=== PATIENT | female | born 1945 | race Caucasian/White ===

== ENCOUNTER 2021-05-26 01:57 | Inpatient (IN) | payer MEDICARE, BC ==
[2021-05-26] MEDS ORDERED: Guaifenesin DM 100-10/5 ML UDCUP PO PRN (02:25)
[2021-05-26] MEDS ORDERED: Zolpidem Tartrate 5 MG TAB PO PRN (02:25)
[2021-05-26] MEDS ORDERED: Ondansetron PF 4 MG/2 ML Vial IVP PRN (02:25)
[2021-05-26] MEDS ORDERED: Acetaminophen 325 MG TAB PO PRN (02:25)
[2021-05-26] MEDS ORDERED: Calcium Carbonate 500 MG ChewTAB PO PRN (02:25)
[2021-05-26] MEDS ORDERED: Dextrose 50% Abboject 50 ML SYRINGE SLOW IVP PRN (02:25)
[2021-05-26] MEDS ORDERED: Dextrose 5% in Water 1,000 ML IV PRN (02:25)
[2021-05-26] MEDS ORDERED: Senokot S 8.6-50 MG TAB PO PRN (02:25)
[2021-05-26 02:39] VITALS: BMI 22.1
[2021-05-26] MEDS ORDERED: Furosemide 20 MG/2 ML VIAL SLOW IVP SCH (02:45)
[2021-05-26] MEDS ORDERED: Magnesium 2 GM/50 ML 2 GM in Premix Bag 1 BAG IVPB SCH (03:00)
[2021-05-26] MEDS: HumaLOG 300 UNITS/3 ML VIAL SC PRN ×3 (03:50→17:19)
[2021-05-26 04:41] LABS: Legionella Urinary Ag Negative (Negative); Strep pneumo Urine Ag NEGATIVE (NEGATIVE)
[2021-05-26] MEDS: methylPREDNISolone Sod Succ 40 MG VIAL IVP SCH ×4 (05:24→22:57)
[2021-05-26] MEDS: Levothyroxine Sodium 125 MCG TAB PO SCH (05:25)
[2021-05-26 05:26] LABS: Anion Gap 20 mmol/L (10-20); BUN (Urea Nitrogen) 37 mg/dL (9.8-20.1); Calc. Creatinine Clearance 35 mL/min (70-130); Carbon Dioxide 21 mmol/L (23-31); Chloride 103 mmol/L (98-107); Potassium 4.3 mmol/L (3.5-5.1); Sodium 140 mmol/L (136-145)
[2021-05-26 05:27] LABS: Calcium 9.1 mg/dL (7.8-10.44); Glucose 235 mg/dL (83-110)
[2021-05-26 06:23] LABS: #Monocytes 0.1 10x3/uL (0.0-1.1); #Neutrophils 6.1 10x3/uL (1.5-8.4); %Basophils 0.2 % (0.0-2.0); %Lymphocytes 5.3 % (18.0-47.0); %Monocytes 1.8 % (0.0-10.0); %Neutrophils 91.3 % (40.0-75.0); Hemoglobin 9.6 g/dL (12.0-15.5); Mean Corpuscular HGB CONC 32.9 g/dL (32.0-36.0); Mean Corpuscular Hemoglobin 33.1 pg (27.0-33.0); Mean Corpuscular Volume 100.7 fl (81.6-98.3); Mean Platelet Volume 8.7 fl (7.4-10.4); Platelet Count 77 10x3/uL (150-450); RBC Distribution Width 18.7 % (11.5-14.5); White Blood Cell (WBC) Count 6.6 10x3/uL (3.5-10.5)
[2021-05-26 06:24] LABS: Platelet Morphology Comment Appears Decreased; RBC Morphology Normal
[2021-05-26] MEDS: Mometasone 200 MCG/Formoterol 5 MCG 120 PUFF INHALER INH SCH ×2 (07:14→20:32)
[2021-05-26] MEDS ORDERED: metFORMIN XR 500 MG TAB PO SCH (08:00)
[2021-05-26] MEDS ORDERED: metFORMIN 500 MG TAB PO SCH ×2 (08:00→17:00)
[2021-05-26] MEDS ORDERED: Clopidogrel Bisulfate 75 MG TAB PO SCH (09:00)
[2021-05-26] MEDS ORDERED: Lisinopril 20 MG TAB PO SCH (09:00)
[2021-05-26] MEDS ORDERED: Enoxaparin Sodium 40 MG/0.4 ML SYRINGE SC SCH (09:00)
[2021-05-26] MEDS ORDERED: BIOTIN 5 MG PO SCH (09:00)
[2021-05-26] MEDS ORDERED: Metoprolol Tartrate 25 MG TAB PO SCH (09:00)
[2021-05-26] MEDS ORDERED: Famotidine 20 MG TAB PO SCH (09:00)
[2021-05-26] MEDS ORDERED: Furosemide 20 MG TAB PO SCH ×4 (09:00)
[2021-05-26] MEDS: Magnesium Oxide 400 MG TAB PO SCH (10:00)
[2021-05-26] MEDS: Digoxin 0.125 MG TAB PO SCH (10:01)
[2021-05-26] MEDS: carBAMazepine 200 MG TAB PO SCH ×2 (10:01→17:18)
[2021-05-26] MEDS: Aspirin Chewable 81 MG TAB PO SCH (10:01)
[2021-05-26] MEDS: Metoprolol Tartrate 25 MG TAB PO SCH ×2 (10:02→23:02)
[2021-05-26] MEDS: Empagliflozin 25 MG TAB PO SCH (10:02)
[2021-05-26] MEDS: Amiodarone 200 MG TAB PO SCH (10:02)
[2021-05-26] MEDS: levETIRAcetam 500 MG TAB PO SCH ×2 (10:02→22:58)
[2021-05-26] MEDS: Amoxicillin/Potassium Clav 875 MG TAB PO SCH ×2 (10:03→23:02)
[2021-05-26] MEDS ORDERED: Sodium Chloride 0.9% 500 ML IV SCH (19:00)
[2021-05-26] MEDS: Montelukast Sodium 10 mg Tablet PO SCH (22:57)
[2021-05-26] MEDS: Rosuvastatin 20 MG TAB PO SCH (23:02)
[2021-05-27] MEDS: HumaLOG 300 UNITS/3 ML VIAL SC PRN ×5 (03:34→21:07)
[2021-05-27 05:51] LABS: Hemoglobin 8.8 g/dL (12.0-15.5); Mean Corpuscular HGB CONC 32.6 g/dL (32.0-36.0); Mean Corpuscular Volume 101.1 fl (81.6-98.3); Mean Platelet Volume 8.8 fl (7.4-10.4); Platelet Count 72 10x3/uL (150-450); RBC Distribution Width 18.7 % (11.5-14.5); Red Blood Cell (RBC) Count 2.67 10x6/uL (3.90-5.03); White Blood Cell (WBC) Count 3.6 10x3/uL (3.5-10.5)
[2021-05-27 06:07] LABS: Anion Gap 15 mmol/L (10-20); BUN (Urea Nitrogen) 52 mg/dL (9.8-20.1); Calc. Creatinine Clearance 30 mL/min (70-130); Calcium 8.4 mg/dL (7.8-10.44); Carbon Dioxide 25 mmol/L (23-31); Cardiac Risk 3.6 (Less than 4.5); Chloride 102 mmol/L (98-107); Cholesterol 133 mg/dl (< 200 Desired); Glucose 253 mg/dL (83-110); HDL Cholesterol 37 mg/dL (>60 Neg Risk); LDL Cholesterol, Calculated 60 mg/dL; Magnesium 2.7 mg/dL (1.6-2.6); Phosphorus 5.3 mg/dL (2.3-4.7); Potassium 4.7 mmol/L (3.5-5.1); Sodium 137 mmol/L (136-145); Triglycerides 181 mg/dL (Less than 150)
[2021-05-27 06:14] LABS: Troponin I 0.013 ng/mL (< 0.028)
[2021-05-27] MEDS: Levothyroxine Sodium 125 MCG TAB PO SCH (06:19)
[2021-05-27] MEDS: methylPREDNISolone Sod Succ 40 MG VIAL IVP SCH ×3 (06:19→17:47)
[2021-05-27 06:28] LABS: D-Dimer Test 1.5 mg/L FEU (0.19-0.50); INR-International Normal Ratio 0.9; PTT 24.3 sec (22.0-33.0); Prothrombin Time 10.5 sec (9.5-12.1)
[2021-05-27] MEDS ORDERED: Sodium Chloride 0.9% 1,000 ML IV SCH (06:30)
[2021-05-27 07:11] LABS: Lymphocytes 13 % (21-51); MDiff Complete? YES; Monocytes 4 % (0-10); Neutrophil 82 % (42-75); Nucleated RBC 1 % (0); Platelet Morphology Comment Appears Decreased; RBC Morphology Normal; Reactive Lymphocytes 1 % (0-10)
[2021-05-27] MEDS ORDERED: metFORMIN XR 500 MG TAB PO SCH (08:00)
[2021-05-27] MEDS ORDERED: FLU VACC QS2021-22(65YR UP)/PF 240 MCG/0.7 ML SYRINGE IM ONE (09:00)
[2021-05-27] MEDS: carBAMazepine 200 MG TAB PO SCH ×2 (09:11→17:47)
[2021-05-27] MEDS: Metoprolol Tartrate 25 MG TAB PO SCH ×2 (09:11→20:57)
[2021-05-27] MEDS: Empagliflozin 25 MG TAB PO SCH (09:11)
[2021-05-27] MEDS: Digoxin 0.125 MG TAB PO SCH (09:11)
[2021-05-27] MEDS: Amiodarone 200 MG TAB PO SCH (09:11)
[2021-05-27] MEDS: Aspirin Chewable 81 MG TAB PO SCH (09:11)
[2021-05-27] MEDS: Magnesium Oxide 400 MG TAB PO SCH (09:12)
[2021-05-27] MEDS: Famotidine 20 MG TAB PO SCH (09:12)
[2021-05-27] MEDS: levETIRAcetam 500 MG TAB PO SCH ×2 (09:12→20:57)
[2021-05-27] MEDS: Amoxicillin/Potassium Clav 875 MG TAB PO SCH ×2 (09:12→20:57)
[2021-05-27] MEDS: Mometasone 200 MCG/Formoterol 5 MCG 120 PUFF INHALER INH SCH ×2 (09:13→19:48)
[2021-05-27 12:39] LABS: Hemoglobin A1c 7.4 % (4.0-6.0)
[2021-05-27 16:53] LABS: Anion Gap 16 mmol/L (10-20); BUN (Urea Nitrogen) 49 mg/dL (9.8-20.1); Calc. Creatinine Clearance 35 mL/min (70-130); Calcium 8.4 mg/dL (7.8-10.44); Carbon Dioxide 23 mmol/L (23-31); Chloride 102 mmol/L (98-107); Glucose 333 mg/dL (83-110); Potassium 4.9 mmol/L (3.5-5.1); Sodium 136 mmol/L (136-145)
[2021-05-27] MEDS: Montelukast Sodium 10 mg Tablet PO SCH (20:57)
[2021-05-27] MEDS: Rosuvastatin 20 MG TAB PO SCH (20:57)
[2021-05-27] MEDS ORDERED: Lantus 1000 UNITS/10 ML VIAL SC SCH (21:00)
[2021-05-28] MEDS: Levothyroxine Sodium 125 MCG TAB PO SCH (05:37)
[2021-05-28] MEDS: HumaLOG 300 UNITS/3 ML VIAL SC PRN ×3 (05:38→11:54)
[2021-05-28] MEDS: Mometasone 200 MCG/Formoterol 5 MCG 120 PUFF INHALER INH SCH (07:05)
[2021-05-28] MEDS ORDERED: predniSONE 50 MG TAB PO SCH (08:00)
[2021-05-28 08:51] LABS: Hemoglobin 8.5 g/dL (12.0-15.5); Mean Corpuscular HGB CONC 32.1 g/dL (32.0-36.0); Mean Corpuscular Hemoglobin 32.8 pg (27.0-33.0); Mean Corpuscular Volume 102.3 fl (81.6-98.3); Mean Platelet Volume 8.8 fl (7.4-10.4); Platelet Count 75 10x3/uL (150-450); RBC Distribution Width 18.8 % (11.5-14.5); Red Blood Cell (RBC) Count 2.59 10x6/uL (3.90-5.03); White Blood Cell (WBC) Count 4.5 10x3/uL (3.5-10.5)
[2021-05-28 08:52] LABS: MDiff Complete? YES
[2021-05-28 09:08] LABS: Anion Gap 12 mmol/L (10-20); BUN (Urea Nitrogen) 50 mg/dL (9.8-20.1); Calc. Creatinine Clearance 35 mL/min (70-130); Calcium 8.4 mg/dL (7.8-10.44); Carbon Dioxide 27 mmol/L (23-31); Chloride 103 mmol/L (98-107); Glucose 201 mg/dL (83-110); Magnesium 2.5 mg/dL (1.6-2.6); Phosphorus 4.1 mg/dL (2.3-4.7); Sodium 138 mmol/L (136-145)
[2021-05-28 09:19] LABS: Neutrophil 58 % (42-75)
[2021-05-28 09:20] LABS: Lymphocytes 20 % (21-51); Monocytes 22 % (0-10); Platelet Morphology Comment Appears Decreased
[2021-05-28 09:22] LABS: Anisocytosis SLIGHT = 6-15 cells (100X) (0-5/hpf); Macrocytosis SLIGHT = 6-15 cells (100X) (0-5/hpf)
[2021-05-28] MEDS: Aspirin Chewable 81 MG TAB PO SCH (09:48)
[2021-05-28] MEDS: Amiodarone 200 MG TAB PO SCH (09:48)
[2021-05-28] MEDS: Empagliflozin 25 MG TAB PO SCH (09:48)
[2021-05-28] MEDS: Famotidine 20 MG TAB PO SCH (09:49)
[2021-05-28] MEDS: carBAMazepine 200 MG TAB PO SCH (09:49)
[2021-05-28] MEDS: Metoprolol Tartrate 25 MG TAB PO SCH (09:50)
[2021-05-28] MEDS: Amoxicillin/Potassium Clav 875 MG TAB PO SCH (09:50)
[2021-05-28] MEDS: Magnesium Oxide 400 MG TAB PO SCH (09:50)
[2021-05-28] MEDS: levETIRAcetam 500 MG TAB PO SCH (09:50)
[2021-05-28] MEDS: Digoxin 0.125 MG TAB PO SCH (09:50)
[2021-05-28 11:40] VITALS: BP 119/69; TEMP 99.1
== END 2021-05-28 14:44 | disposition home or self-care (01) | DRG 189 ==
LOC: OBSVTOIN 01:57 → CSHTELE 01:57
PROVIDERS: ADMIT Student in an Organized Health Care Education/Training Program; ATTEND Family Medicine
DX: J96.01 Acute respiratory failure with hypoxia (principal); I21.A1 Myocardial infarction type 2; I26.99 Other pulmonary embolism without acute cor pulmonale; J45.41 Moderate persistent asthma with (acute) exacerbation; N17.9 Acute kidney failure, unspecified; E11.65 Type 2 diabetes mellitus with hyperglycemia; E03.9 Hypothyroidism, unspecified; D53.9 Nutritional anemia, unspecified; D69.6 Thrombocytopenia, unspecified; I48.0 Paroxysmal atrial fibrillation; E11.22 Type 2 diabetes mellitus with diabetic chronic kidney disease; I10 Essential (primary) hypertension; E86.0 Dehydration; G40.909 Epilepsy, unspecified, not intractable, without status epilepticus; N18.32 Chronic kidney disease, stage 3b; E78.5 Hyperlipidemia, unspecified; Z95.2 Presence of prosthetic heart valve; Z90.710 Acquired absence of both cervix and uterus; Z95.0 Presence of cardiac pacemaker; Z79.82 Long term (current) use of aspirin; Z79.84 Long term (current) use of oral hypoglycemic drugs; Z79.899 Other long term (current) drug therapy; Z90.49 Acquired absence of other specified parts of digestive tract; J20.9 Acute bronchitis, unspecified; I16.0 Hypertensive urgency; Z20.822 Contact with and (suspected) exposure to COVID-19
CPT/HCPCS: 0240U; 36415; 36416; 71045; 76705; 76770; 80048; 80053; 80061; 81003; 81015; 82553; 83036; 83605; 83735; 83880; 84100; 84443; 84484; 85025; 85041; 85048; 85060; 85379; 85610; 85730; 86850; 86900; 86901; 87040; 87086; 87449; 87899; 93005; 93306; 93970; 94640; 94664; 94760; 96365; 96375; J0696; J1815; J1940; J2920; J2930; J3475; J7050; J7512; J7620